=== PATIENT | female | born 1960 | race African-American/Black ===

== ENCOUNTER 2017-02-28 14:51 | Emergency (ER) | payer SELFPAY ==
[2017-02-28 15:05] VITALS: BMI 45.7
--- NOTE | 2017-02-28 15:27 | DR.GENAD ---
HPI - PCP Primary Care Physician: NFD - Complaint/Symptoms Chief Complaint Doctors Comments: Patient reports that she is out of her blood pressure medication. She just moved to area and has not found a physician. She admits to taking clonidine.0.3mg qd, amlodipne 10mg qd and metroprolol 50mg bid. She denies any other medical condition. Chief Complaint:: ELEVATED BP Self Treatment fo Chief Complaint: PT STATES BP HAS BEEN UP A COUPLE OF DAYS - Source History Provided: Patient - Mode of Arrival Mode of Arrival: Ambulatory - Timing Onset of Chief Complaint: 02/28/17 PMH - PMH Past Medical History: Yes Past Medical History: Hyperthyroidism Past Surgical History: Yes Surgical History: Ortho Surgery Past Surgical History Comment: TUBALIGATION. KNEE REPLACEMENT X 2 - Family History History of Family Medical Conditions: Yes Family Medical History: Diabetes Mellitus, Cancer, Hypertension - Social History Does patient currently use any type of tobacco product: No Have you used tobacco products in the last 12 months: No Type of Tobacco Use: None Does any household member use tobacco: No Alcohol Use: None Do you use any recreational Drugs:: No Lives With: Family Lives Where: Home - infectious screening In the last 2 months have you had wt loss of >10#?: NO Have you had fever, night sweats or hemotysis?: No Have you traveled outside the country in the last 6 months?: No Isolation: Standard ROS - Review of Systems Eyes: No Symptoms Reported ENTM: No Symptoms Reported Respiratoy: No Symptoms Reported Cardiovascular: No Symptoms Reported Gastrointestinal/Abdominal: No Symptoms Reported Genitourinary: No Symptoms Reported Neurological: No Symptoms Reported Musculoskeletal: No Symptoms Reported Integumentary: No Symptoms Reported Hematologic/Lymphatic: No Symptoms Reported Endocrine: No Symptoms Reported Psychiatric: No Symptoms Reported All Other Systems: Reviewed and Negative PE - Vital Signs Vitals: Temperature 98.8 F Pulse Rate [Left Brachial] 81 Pulse Rate 88 Respiratory Rate 17 Blood Pressure [Left Arm] 175/98 Blood Pressure 206/113 O2 Sat by Pulse Oximetry 99 - General Limitations: No Limitations General Appearance: Alert, In No Apparent Distress - Head Head Exam: Normal Inspection, Atraumatic - Eyes Eye exam: Normal Appearance, PERRL, EOMI - ENT ENT Exam: Normal Exam External Ear Exam: Normal External Inspection TM/Canal Exam: Bilateral Normal Nose Exam: Normal Nose Exam, Sinus Tenderness Mouth Exam: Normal Inspection Throat Exam: Normal Inspection - Neck Neck Exam: Normal Inspection, Full ROM - Chest Chest Inspection: Normal Inspection - Respiratory Respiratory Exam: Normal Lung Sounds Bilat Respiratory Exam: Bilateral Clear to Auscultation - Cardiovascular Cardiovascular Exam: Regular Rate, Normal Rhythm - Abdominal Exam Abdominal Exam: Normal Inspection, Normal Bowel Sounds Abdominal Tenderness: negative: RUQ, RLQ, LUQ, LLQ, Epigastrium, Suprapubic, Diffuse, Mild, Moderate, Severe, Other - Extremities Extremities Exam: Normal Inspection, Full ROM - Back Back Exam: Normal Inspection, Full ROM - Neurologic Neurological Exam: Alert, Oriented X3, CN II-XII Intact - Psychiatric Psychiatric Exam: Normal Affect - Skin Skin Exam: Warm Course - Treatment Treatment: clonidine 0.3mg x3 BP 175/98 - Reevaluation 1st: Improved - Diagnosis Discharge Problem: Hypertension Qualifiers: Hypertension type: essential hypertension Qualified Code(s): I10 - Essential ( primary) hypertension - Discharge Plan Condition: Stable - Follow ups/Referrals Follow ups/Referrals: NFD,None [Primary Care Provider] - 3 days - Instructions
[2017-02-28] MEDS ORDERED: CATAPRES TAB 0.2 MG PO ONE (15:29)
[2017-02-28] MEDS ORDERED: CATAPRES TAB 0.2 MG ONE (15:32)
[2017-02-28 17:49] VITALS: BP 175/98
== END 2017-02-28 18:04 | disposition home or self-care (01) ==
LOC: ER 15:11
DX: I10 Essential (primary) hypertension (principal)
CPT/HCPCS: 99282